=== PATIENT | female | born 1975 | race Caucasian/White ===

== ENCOUNTER → 2017-06-28 09:45 | Outpatient (CLI) | payer OTHER, SELFPAY ==
--- NOTE | 2017-06-28 09:46 | DI.RAD.S_ITS ---
PROCEDURE: XR KNEE RT 3V INDICATIONS: fell on right knee TECHNIQUE: 3 views of the knee were acquired. COMPARISON: None. FINDINGS: Bones: No fractures or dislocations. No suspicious bony lesions. Small marginal osteophytes are evident along the articular surface of the patella. There is also spurring of the tibial spines. Soft tissues: No joint effusion. No suspicious soft tissue calcifications. Prepatellar soft tissue edema is incidentally noted. IMPRESSION: Minimal degenerative changes of the right knee. No acute fractures. Dictated by: Martín Lopez M.D. on 06/28/2017 at 9:50 Approved by: Martín Lopez M.D. on 06/28/2017 at 9:52
== END ==
PROVIDERS: Family Provider Physician Assistant; PCP Physician Assistant
DX: M17.11 Unilateral primary osteoarthritis, right knee (principal)
CPT/HCPCS: 73562

== ENCOUNTER → 2017-11-08 15:59 | Outpatient (CLI) | payer OTHER, SELFPAY ==
[2017-11-16 10:24] LABS: Rapid Plasma Reagin NON-REACTIVE
== END ==
PROVIDERS: Visit Provider Specialist
DX: N90.89 Other specified noninflammatory disorders of vulva and perineum (principal)
CPT/HCPCS: 36415; 86592

== ENCOUNTER → 2017-12-04 14:57 | Outpatient (CLI) | payer OTHER, SELFPAY ==
--- NOTE | 2017-12-04 14:58 | DI.MG.S_ITS ---
BILATERAL DIGITAL SCREENING MAMMOGRAM 3D/2D WITH CAD: 12/04/2017 CLINICAL: Routine screening. Comparison is made to exam dated: 08/02/2016 [facility]. The tissue of both breasts is heterogeneously dense. This may lower the sensitivity of mammography. Current study was also evaluated with a Computer Aided Detection (CAD) system. No significant masses, calcifications, or other findings are seen in either breast. There has been no significant interval change. IMPRESSION: NEGATIVE There is no mammographic evidence of malignancy. A 1 year screening mammogram is recommended. This exam was interpreted at Station ID: [id number]. NOTE: For mammograms, a report in lay terms will be sent to the patient. Approximately 15% of breast malignancies will not be visualized mammographically. In the management of a palpable breast mass, a negative mammogram must not discourage biopsy of a clinically suspicious lesion. Electronically Signed By: Maye mar/lázaro:12/05/2017 08:55:49 letter sent: Normal Exam ACR BI-RADS Category 1: Negative 3341F
== END ==
PROVIDERS: PCP Physician Assistant; Visit Provider Specialist
DX: Z12.31 Encounter for screening mammogram for malignant neoplasm of breast (principal)
CPT/HCPCS: 77063; 77067

== ENCOUNTER 2018-05-21 23:56 | Emergency (ER) | payer OTHER, SELFPAY ==
[2018-05-22 00:05] VITALS: BP 129/99; PULSE 89; RESP 24; TEMP 36.4; O2SAT 100
--- NOTE | 2018-05-22 00:17 | DI.CT.S_ITS ---
PROCEDURE: CT KIDNEY URETER BLADDER (KUB) INDICATIONS: Sudden severe flank pain on the right, possible urinary tract stone. TECHNIQUE: Noncontrast 5 mm thick sections acquired from the diaphragms to the symphysis. 5 mm thick coronal and sagittal reformats were then performed. For radiation dose reduction, the following was used: automated exposure control, adjustment of mA and/or kV according to patient size. COMPARISON: None. FINDINGS: Image quality: Excellent. Lung bases: Lung bases are clear. Heart size is normal. Urinary system: Both kidneys are normal in size. No kidney stones. No left-sided hydronephrosis or perinephric fat stranding but there is slight prominence of the right renal collecting system and at the far distal margin of the right ureter there is a 1.5 mm calculus (seen centered on series 2 image 73) several centimeters above the ureteral insertion onto the posterior right bladder margin.. Both ureters appear non-dilated throughout their expected courses. Bladder wall thickness is normal; no calcified bladder stones. Other solid organs: Liver is normal in size. Gallbladder appears normal. Pancreas is normal in contours. Spleen is normal in size. No adrenal nodules. Peritoneum and bowel: Unenhanced bowel loops demonstrate normal wall thickness and caliber. No free fluid or air. Nodes and vessels: No retroperitoneal or mesenteric adenopathy by size criteria. Aorta and inferior vena cava are normal in caliber. Abdominal wall: No ventral hernias. Pelvis: No free pelvic fluid. No inguinal hernias or adenopathy. No sign of appendicitis the normal appendix could not be found. The uterus is anteverted and appears to have a fibroid that is slightly more dense than the uterine myometrium projecting inferiorly from the anteverted anterior uterine margin at the fundus. This structure measures only 2.4 cm in maximal dimension. Bones: No suspicious bony lesions. No vertebral body compression fractures. IMPRESSION: Slight hydronephrosis and hydroureter on the right leading to a 1.5 mm far distal right ureteral stone positioned within the ureter slightly above the bladder level. Incidental finding of a 2.4 cm mildly hyperdense uterine fibroid projecting from the anterior border of the fundal portion of the uterus which is strongly anteverted. Dictated by: Todd Trinidad M.D. on 05/22/2018 at 9:01 Approved by: Todd Trinidad M.D. on 05/22/2018 at 9:07
[2018-05-22] MEDS: ONDANSETRON 4 MG/2 ML INJ IV ×2 (00:20→00:28)
[2018-05-22 00:26] LABS: Add Manual Diff / Slide Review NO; Basophils Absolute Auto 100 /uL (0-100); Basophils Percent Auto 1.1 % (0-2); Eosinophils Absolute Auto 100 /uL (0-450); Eosinophils Percent Auto 1.2 % (2-4); Hematocrit 39.9 % (36-46); Hemoglobin 13.5 g/dL (12.0-16.0); Lymphocytes Absolute Auto 3300 /uL (1100-4500); Lymphocytes Percent Auto 27.8 % (25-40); Mean Corpuscular HGB Conc 33.7 % (30-36); Mean Corpuscular Hemoglobin 30.1 PG (26-34); Mean Corpuscular Volume 89.1 fL (80-100); Monocytes Absolute Auto 1200 /uL (0-900); Neutrophils Absolute Auto 7100 /uL (1500-7000); Neutrophils Percent Auto 59.9 % (50-75); Platelet Count 298 X10^3/uL (150-400); Red Blood Cell Count 4.48 X10^6/uL (4.0-5.2); Red Cell Distribution Width 13.4 % (11.6-14.8); White Blood Cell Count 11.9 X10^3/uL (4.5-11.0)
[2018-05-22] MEDS: KETOROLAC 30 MG/ML VIAL 15 MG IV (00:28)
[2018-05-22] MEDS: SODIUM CHLORIDE 0.9% 1,000 ML 1000 ML IV (00:28)
[2018-05-22 00:31] LABS: Alanine Aminotransferase 24 IU/L (9-52); Albumin 4.4 g/dL (3.5-5.0); Albumin Globulin Ratio 1.5 (1.0-2.8); Alkaline Phosphatase 55 U/L (38-126); Aspartate Aminotransferase 22 IU/L (14-36); Bilirubin Total 0.2 mg/dL (0.2-1.3); Blood Urea Nitrogen 21 mg/dL (7-17); Calcium 9.1 mg/dL (8.4-10.2); Carbon Dioxide 24 mmol/L (22-32); Chloride 101 mmol/L (98-107); Estimated Glomerular Filt Rate > 60.0 mL/min (>60); Globulin 2.9 g/dL (1.7-4.1); Glucose 114 mg/dL (70-100); HEMOLYSIS < 15 (0-50); Sodium 137 mmol/L (137-145); Total Protein 7.3 g/dL (6.3-8.2)
[2018-05-22 00:45] LABS: WBC Urine None Seen (0-5/HPF)
[2018-05-22 00:46] LABS: Appearance Urine UA CLEAR; Bilirubin Urine UA NEGATIVE (NEGATIVE); Color Urine UA YELLOW; Glucose Urine UA NEGATIVE (Negative); Ketones Urine UA 1+ (NEGATIVE); Leukocyte Esterase Urine UA NEGATIVE (NEGATIVE); Nitrite Urine UA NEGATIVE (Negative); Occult Blood Urine UA TRACE-INTACT (Negative); Protein Urine UA NEGATIVE (Negative); Urobilinogen Urine UA 0.2 E.U./dL (0.2)
[2018-05-22 00:56] LABS: Bacteria Urine Few (2-10); Culture Indicated Urine Cult Not Indicated; RBC Urine 0-1/HPF (0-5/HPF); Squamous Epithelial Cell Urine 5-10 /HPF (0-5/HPF)
[2018-05-22] MEDS: POTASSIUM CHLORIDE 20 MEQ/15 ML UDC 40 MEQ PO (01:37)
[2018-05-22] MEDS: ONDANSETRON 4 MG ODT PREPACK 1 BOTTLE MISC (02:04)
[2018-05-22] MEDS: HYDROCODONE/ACET 5/325 PREPACK 1 BOTTLE MISC (02:04)
[2018-05-22 02:10] VITALS: BP 122/65; PULSE 66; RESP 16; O2SAT 98
--- NOTE | 2018-05-22 06:47 | ED.ABDPAIN ---
HPI - Abdominal Pain General Chief Complaint: Abdominal Pain Stated Complaint: sudden terrible pain in right back area Time Seen by Provider: 05/21/18 23:57 Source: patient Mode of arrival: ambulatory Limitations: no limitations History of Present Illness HPI narrative: 42-year-old female nonsmoker with benign medical history presents with sudden onset right flank pain and radiation around her side. She denies provocation or palliation. She has nausea but denies any vomiting. She denies dysuria, frequency or urgency. She has had no fever or shaking chills MD complaint: flank pain Onset (ago): hour(s) Pain Consistency: intermittent Severity: severe Quality: stabbing Radiation: RLQ Relieving factors: nothing Exacerbating factors: nothing Associated symptoms: nausea Related Data Home Medications Medication Instructions Recorded Confirmed Multivitamin 1 tab PO .QDAY 09/19/17 10/30/17 Previous Rx's Medication Instructions Recorded hydrocodone-acetaminophen 1 tab PO Q4-6H PRN #10 tab 05/22/18 ketorolac 10 mg PO Q6H PRN #14 tab 05/22/18 ondansetron 4 mg PO TID-QID PRN #10 tab 05/22/18 tamsulosin [Flomax] 0.4 mg PO DAILY #10 cap 05/22/18 Allergies Allergy/AdvReac Type Severity Reaction Status Date / Time No Known Allergies Allergy Uncoded 10/30/17 15:35 Review of Systems Constitutional Denies chills, Denies fever(s), Denies lethargy and Denies weakness Eyes Denies change in vision, Denies eye discharge, Denies irritation and Denies loss of vision ENT Ears, Nose, Mouth, and Throat: Denies change in voice, Denies neck pain and Denies sore throat Cardiovascular Denies chest pain, Denies irregular heart rhythm, Denies lightheadedness, Denies palpitations, Denies dyspnea, Denies dyspnea on exertion and Denies orthopnea Respiratory Denies cough, Denies dyspnea, Denies dyspnea on exertion and Denies wheezing Gastrointestinal Gastrointestinal: Denies abdominal pain, Denies change in bowel habits, Denies diarrhea, Denies nausea and Denies vomiting Genitourinary Denies hematuria, Reports flank pain, Denies urinary incontinence and Denies urinary urgency Musculoskeletal Denies neck pain Integumentary/Breasts Denies pruritus, Denies erythema, Denies rash and Denies wounds Neurologic Denies confusion, Denies loss of vision and Denies weakness Psychiatric Denies anxiety, Denies confusion, Denies depression, Denies homicidal ideation and Denies suicidal ideation Endocrine Denies palpitations Hematologic/Lymphatic Denies easy bruising Allergic/Immunologic Denies wheezing [facility] Medical History Back pain (Resolved ~09/2016) Vitamin D deficiency (Resolved ~11/2016) Family History Mother Cancer Grandfather Cancer Social History Smoking Status: Former smoker Tobacco: How many years used: 1 second hand exposure: No alcohol intake: current (wine once a day.) substance use type: marijuana (I have an edible brownie once a week to help me sleep.) Family History Mother Cancer Grandfather Cancer Social History Smoking Status: Former smoker Tobacco: How many years used: 1 second hand exposure: No alcohol intake: current (wine once a day.) substance use type: marijuana (I have an edible brownie once a week to help me sleep.) Exam Narrative Exam Narrative: GENERAL: 42-year-old female, obviously uncomfortable and clutching her right flank HEAD: Atraumatic. Normocephalic. No temporal or scalp tenderness. EYES: Pupils equal round and reactive. Extraocular motions intact. No scleral icterus. No injection or drainage. ENT: Nose without bleeding, purulent drainage or septal hematoma. Throat without erythema, tonsillar hypertrophy or exudate. Uvula midline. Airway patent. NECK: Trachea midline. No JVD or lymphadenopathy. Supple, nontender, no meningeal signs. CARDIOVASCULAR: Regular rate and rhythm without murmurs, gallops, or rubs. RESPIRATORY: Clear to auscultation. Breath sounds equal bilaterally. No wheezes, rales, or rhonchi. GASTROINTESTINAL: Abdomen soft, non-tender, nondistended. No hepato-splenomegaly, or palpable masses. No guarding. EXTREMITIES: No clubbing, cyanosis, or edema. No joint tenderness, effusion, or edema noted. BACK: Nontender without deformity or crepitance. No flank tenderness. NEURO: AOx3. SKIN: No rash or erythema. Initial Vital Signs Initial Vital Signs: Vital Signs Temperature 97.5 F L 05/22/18 00:05 Pulse Rate 89 05/22/18 00:05 Respiratory Rate 24 05/22/18 00:05 Blood Pressure 129/99 H 05/22/18 00:05 Pulse Oximetry 100 05/22/18 00:05 Course Orders Ordered: ED Orders 05/22/18 00:08 Complete Blood Count AUTO DIFF Stat Comprehensive Metabolic Panel Stat 05/22/18 00:17 CT kidney ureter bladder (KUB) Stat 05/22/18 00:40 Urinalysis and Microscopic Stat Discontinued Medications Hydrocodone Bitart/Acetaminophen (Vicodin Prepack) 1 bottle MISC SEEINSTR ONE Stop: 05/22/18 01:39 Last Admin: 05/22/18 02:04 Dose: 1 bottle Hydromorphone HCl (Dilaudid) 0.5 mg IV NOW ONE Stop: 05/22/18 01:22 Last Admin: 05/22/18 01:35 Dose: Not Given Sodium Chloride (Normal Saline 0.9%) 1,000 mls @ 1,000 mls/hr IV BOLUS ONE Stop: 05/22/18 01:16 Last Infusion: 05/22/18 01:38 Dose: 0 mls/hr Admin: 05/22/18 00:28 Dose: 1,000 mls/hr Ketorolac Tromethamine (Toradol) 15 mg IV NOW ONE Stop: 05/22/18 00:18 Last Admin: 05/22/18 00:28 Dose: 15 mg Ondansetron HCl (Zofran) 4 mg IV NOW ONE Stop: 05/22/18 00:19 Last Admin: 05/22/18 00:20 Dose: 4 mg Ondansetron HCl (Zofran) 4 mg IV NOW ONE Stop: 05/22/18 00:18 Last Admin: 05/22/18 00:28 Dose: 4 mg Ondansetron HCl (Zofran Odt Prepack) 1 bottle MISC SEEINSTR ONE Stop: 05/22/18 01:39 Last Admin: 05/22/18 02:04 Dose: 1 bottle Potassium Chloride (Potassium Chloride) 40 meq PO NOW ONE Stop: 05/22/18 00:42 Last Admin: 05/22/18 01:37 Dose: 40 meq Reevaluation(s) Reevaluation #1: Near complete resolution of symptoms after above-stated therapies Vital Signs - 8 hr 05/22/18 00:05 05/22/18 02:10 Temperature 97.5 F L Pulse Rate 89 66 Respiratory Rate 24 16 Blood Pressure 129/99 H 122/65 Pulse Oximetry 100 98 MDM - Abdominal Pain Medical Records Attestation: I reviewed the patient's medical records. Lab Data Attestation: I reviewed the patient's lab results. Result diagrams: 05/22/18 00:08 05/22/18 00:08 Lab Results 05/22/18 05/22/18 05/22/18 Range/Units 00:08 00:08 00:40 WBC 11.9 H (4.5-11.0) X10^3/uL RBC 4.48 (4.0-5.2) X10^6/uL Hgb 13.5 (12.0-16.0) g/dL Hct 39.9 (36-46) % MCV 89.1 (80-100) fL MCH 30.1 (26-34) PG MCHC 33.7 (30-36) % RDW 13.4 (11.6-14.8) % Plt Count 298 (150-400) X10^3/uL Neut % (Auto) 59.9 (50-75) % Lymph % (Auto) 27.8 (25-40) % [place] % (Auto) 10.0 (3-14) % Eos % (Auto) 1.2 L (2-4) % Baso % (Auto) 1.1 (0-2) % Neut # (Auto) 7100 H (4557-3703) /uL Lymph # (Auto) 3300 (7915-1215) /uL [place] # (Auto) 1200 H (0-900) /uL Eos # (Auto) 100 (0-450) /uL Baso # (Auto) 100 (0-100) /uL Sodium 137 (137-145) mmol/L Potassium 3.0 L (3.4-5.1) mmol/L Chloride 101 (98-107) mmol/L Carbon Dioxide 24 (22-32) mmol/L BUN 21 H (7-17) mg/dL Creatinine 0.70 (0.52-1.04) mg/dL Estimated GFR > 60.0 (>60) mL/min BUN/Creatinine Ratio 30.0 H (6-22) Glucose 114 H (70-100) mg/dL Calcium 9.1 (8.4-10.2) mg/dL Total Bilirubin 0.2 (0.2-1.3) mg/dL AST 22 (14-36) IU/L ALT 24 (9-52) IU/L Alkaline Phosphatase 55 (38-126) U/L Total Protein 7.3 (6.3-8.2) g/dL Albumin 4.4 (3.5-5.0) g/dL Globulin 2.9 (1.7-4.1) g/dL Albumin/Globulin Ratio 1.5 (1.0-2.8) Urine Color Yellow Urine Appearance Clear Urine pH 6.0 (4.5-8.0) Ur Specific Cotton 1.020 (1.000-1.035) Urine Protein Negative (Negative) Urine Glucose (UA) Negative (Negative) g/dL Urine Ketones 1+ H (NEGATIVE) Urine Occult Blood Trace-intact (Negative) Urine Nitrate Negative (Negative) Urine Bilirubin Negative (NEGATIVE) Urine Urobilinogen 0.2 (0.2) E.U./dL Ur Leukocyte Esterase Negative (NEGATIVE) Urine RBC 0-1/hpf (0-5/HPF) Urine WBC None seen (0-5/HPF) Ur Squamous Epith Cells 5-10 /hpf H (0-5/HPF) Urine Bacteria Few (2-10) H (None) Ur Culture Indicated? Cult not indicated Point of care testing: Point of Care Testing Test Results Negative Imaging Data CT KUB: Attestation: I personally reviewed and interpreted this imaging study as follows: Radiologist's impression: Small nonobstructing stone at the right UVJ without evidence of hydro Discharge Plan Departure Patient Disposition: Home Clinical Impression: Calculus of kidney Discharge Date/Time: 05/22/18 02:10 Interventions: ED Discharge Assessment Last Done: 05/22/18 02:10 Instructions: DI for Kidney Stones Activity Restrictions/Additional Instructions: *You have been diagnosed with [ kidney stone ] *What to do: *Take medications as directed *Follow up with your primary care provider in 2-3 days, call for an appointment. Let them know you were seen in the Emergency Department and that we ask that you be seen in follow up *Return to ER if you should have any new, worsening or concerning symptoms Prescriptions: New tamsulosin [Flomax] 0.4 mg capsule 0.4 mg PO DAILY Qty: 10 RF: 0 hydrocodone-acetaminophen 5-325 mg tablet 1 tab PO Q4-6H PRN (Reason: pain) Qty: 10 RF: 0 ketorolac 10 mg tablet 10 mg PO Q6H PRN (Reason: pain) Qty: 14 RF: 0 ondansetron 4 mg tablet,disintegrating 4 mg PO TID-QID PRN (Reason: nausea and vomiting) Qty: 10 RF: 0 No Action Multivitamin 1 tab PO .QDAY RF: 0 Referrals: María Reicnos PA-C [Primary Care Provider] -
== END 2018-05-22 02:10 | disposition home or self-care (01) ==
PROVIDERS: Emergency Provider Emergency Medicine; PCP Physician Assistant
DX: N20.0 Calculus of kidney (principal)
CPT/HCPCS: 36591; 74176; 80053; 81001; 81025; 85025; 96361; 96374; 96375; 99283; 99284; J1885; J2405

== ENCOUNTER → 2018-05-25 16:34 | Outpatient (CLI) | payer OTHER, SELFPAY | PROVIDERS: PCP Nurse Practitioner Family; Visit Provider Nurse Practitioner Family | DX: N20.0 Calculus of kidney (principal) | CPT/HCPCS: 82370 ==

== ENCOUNTER → 2019-02-15 14:18 | Outpatient (CLI) | payer OTHER, SELFPAY ==
--- NOTE | 2019-02-15 | DI.MG.S_ITS ---
BILATERAL DIGITAL SCREENING MAMMOGRAM 3D/2D WITH CAD: 02/15/2019 CLINICAL: Routine screening. Comparison is made to exams dated: 12/04/2017 mammogram and 08/02/2016 mammogram - [facility]. The tissue of both breasts is heterogeneously dense. This may lower the sensitivity of mammography. Current study was also evaluated with a Computer Aided Detection (CAD) system. No significant masses, calcifications, or other findings are seen in either breast. There has been no significant interval change. IMPRESSION: NEGATIVE There is no mammographic evidence of malignancy. A 1 year screening mammogram is recommended. This exam was interpreted at Station ID: [id number]. NOTE: For mammograms, a report in lay terms will be sent to the patient. Approximately 15% of breast malignancies will not be visualized mammographically. In the management of a palpable breast mass, a negative mammogram must not discourage biopsy of a clinically suspicious lesion. Electronically Signed By: Maye mar/lázaro:02/15/2019 17:25:47 letter sent: Normal Exam ACR BI-RADS Category 1: Negative 3341F
== END ==
PROVIDERS: PCP Nurse Practitioner Family; Visit Provider Nurse Practitioner Family
DX: Z12.31 Encounter for screening mammogram for malignant neoplasm of breast (principal)
CPT/HCPCS: 77063; 77067

== ENCOUNTER → 2020-01-08 13:13 | Outpatient (CLI) | payer OTHER, SELFPAY ==
--- NOTE | 2020-01-08 13:14 | DI.US.S_ITS ---
PROCEDURE: US PELVIC COMPLETE INDICATIONS: HEAVY MENSES. MENORRHAGIA TECHNIQUE: Real-time scanning was performed of the pelvic organs, with image documentation. Additional endovaginal scanning was necessary due to incomplete visualization of the adnexal and endometrial structures by transabdominal scanning. COMPARISON: [facility], CT, CT KIDNEY URETER BLADDER (KUB), 05/22/2018, 1:08. FINDINGS: Transabdominal scanning: Limited scanning through the kidneys shows no hydronephrosis. No pathologic free abdominal or pelvic fluid. Endovaginal scanning: Uterus: Uterus is normal in size at 9.2 x 4.7 x 5.4 cm. The endometrium measures 6 mm in combined thickness. At the uterine fundus on the right, there is a fibroid seen that measures 3.1 x 2.5 x 2.3 cm. Ovaries: The right ovary measures 2.8 x 1.3 x 1.4 cm. The left ovary measures 2.3 x 1.6 x 1.6 cm. The ovaries have a normal sonographic appearance. No adnexal masses are seen. IMPRESSION: There is a 3.1 cm fundal fibroid seen. Dictated by: Martin Ferrer M.D. on 01/08/2020 at 14:54 Approved by: Martin Ferrer M.D. on 01/08/2020 at 14:56
== END ==
PROVIDERS: PCP Family Medicine; Referring Provider Registered Nurse Diabetes Educator; Visit Provider Registered Nurse Diabetes Educator
DX: N92.0 Excessive and frequent menstruation with regular cycle (principal); D25.9 Leiomyoma of uterus, unspecified
CPT/HCPCS: 76856

== ENCOUNTER → 2021-03-15 08:32 | Outpatient (CLI) | payer OTHER, SELFPAY ==
--- NOTE | 2021-03-15 | DI.MG.S_ITS ---
BILATERAL DIGITAL SCREENING MAMMOGRAM 3D/2D WITH CAD: 03/15/2021 CLINICAL: Routine screening. Comparison is made to exam dated: 02/15/2019 [facility]. The tissue of both breasts is heterogeneously dense. This may lower the sensitivity of mammography. Current study was also evaluated with a Computer Aided Detection (CAD) system. No significant masses, calcifications, or other findings are seen in either breast. There has been no significant interval change. IMPRESSION: NEGATIVE There is no mammographic evidence of malignancy. A 1 year screening mammogram is recommended. This exam was interpreted at Station ID: [id number]. NOTE: For mammograms, a report in lay terms will be sent to the patient. Approximately 15% of breast malignancies will not be visualized mammographically. In the management of a palpable breast mass, a negative mammogram must not discourage biopsy of a clinically suspicious lesion. Electronically Signed By: Barry kramer/lázaro:03/15/2021 09:42:57 letter sent: Normal Exam ACR BI-RADS Category 1: Negative 3341F
== END ==
PROVIDERS: PCP Family Medicine; Referring Provider Family Medicine; Visit Provider Family Medicine
DX: Z12.31 Encounter for screening mammogram for malignant neoplasm of breast (principal)
CPT/HCPCS: 77063; 77067

== ENCOUNTER 2021-10-16 07:32 | Emergency (ER) | payer OTHER, SELFPAY ==
[2021-10-16 07:42] VITALS: BP 132/89; PULSE 91; RESP 18; TEMP 36.7; O2SAT 100; BMI 25.0
--- NOTE | 2021-10-16 07:46 | DI.US.S_ITS ---
PROCEDURE: US OB <= 14 WEEKS FETUS INDICATIONS: + preg 1 week ago. negative, vaginal bleeding 9 wk by dates OUTSIDE/PRIOR DATING DATA: Last menstrual period (LMP): 08/08/2021. LMP-based estimated date of delivery (TUNDE): 9 weeks 6 days First dating scan (date and location): None available Estimated date of delivery (TUNDE) from first dating scan: None TECHNIQUE: Real-time scanning was performed of the fetus and maternal pelvic organs, with image documentation. Endovaginal scanning was also performed to better visualize the fetus and maternal ovaries. COMPARISON: None. FINDINGS: No gestational sac or embryo is identified. Maternal organs: Uterus measures 12.5 x 6.8 x 9 cm. Fundal anterior subserosal fibroid measuring 3.9 x 3.2 x 3.9 cm. The endometrium has heterogeneous debris between combined wall measurement of 12 mm. Heterogeneous debris extends into the cervical region. The right ovary is not seen. Left ovary measures 4.2 x 2.5 x 2.6 cm with a 2.3 cm simple appearing cyst. IMPRESSION: 1. No intrauterine identified. 2. Heterogeneous material within the endocervical canal are likely retained products of conception. 3. Fundal uterine fibroid. We strive to produce accurate, complete, and clear reports of imaging services. To assist us in improving patient care, this report was composed using standard report templates and voice recognition software. Therefore, it may contain abnormal punctuation, insertions and/or omissions. Occasional wrong-word or sound-alike substitutions may occur. Though we review the report and make efforts to correct it, we do recommend that the report be read carefully in proper context to recognize any text inaccuracies. Dictated by: Jose E Field M.D. on 10/16/2021 at 8:12 Approved by: Jose E Field M.D. on 10/16/2021 at 8:21
--- NOTE | 2021-10-16 07:48 | ED.PREGNANCY ---
HPI - General Chief complaint: Vaginal Bleeding Stated complaint: sent by [facility] miscarriage Time Seen by Provider: 10/16/21 07:38 Source: patient Mode of arrival: Ambulatory Limitations: no limitations History of Present Illness HPI Narrative: This is a 46-year-old at approximately 9-10 weeks based on last menstrual. The end of July of 2021. Patient states she thought she was perimenopausal so she was not expecting to have a positive test she did not check 1 until the last month. She states it was positive approximately a week to 2 weeks ago. Patient states she started having some vaginal bleeding and overnight had increasing bleeding she is had some clots and quite a bit of cramping in her lower pelvic and back region which he states is more intense than typical. . Patient states she is had prior kidney stones and that this feels similar intensity although different pattern. She denies any fevers or chills. No chest pain COVID although testing positive now is still recovering. Denies any cough, cold or congestion. Denies nausea or vomiting. Denies diarrhea constipation. No dysuria, urgency or frequency. Denies vaginal discharge. She has been having bleeding. Patient states she normally has regular menses. Denies any daily medications or medical issues. States she is had a prior laparoscopic surgery for ovarian cyst remotely. No tobacco, occasional alcohol, no illicit. Patient had not established with a provider. Her primary care is Dr. Mejia. Related Data Home Medications Medication Instructions Recorded Confirmed ibuprofen 200 mg tablet 400 mg PO BID PRN 07/25/18 08/03/21 Previous Rx's Medication Instructions Recorded fluconazole 150 mg tablet See Rx Instructions PO .COMPLEX #2 05/03/21 (Diflucan) tabs meloxicam 7.5 mg tablet 7.5 mg PO BID PRN pain #14 tabs 10/16/21 Allergies Allergy/AdvReac Type Severity Reaction Status Date / Time No Known Allergies Allergy Uncoded 10/16/21 07:18 Review of Systems Review of Systems ROS Unobtainable: All systems reviewed & are unremarkable except as noted in HPI and below Exam Narrative Exam Narrative: GENERAL: Alert and oriented x three, mild. Patient is tearful. HEENT: Head normocephalic, atraumatic, EOMI, pupils reactive, face symmetric, moist mucous membranes NECK: Supple, full range of motion CARDIOVASCULAR: Regular rate and rhythm without murmurs, rubs or gallops. RESPIRATORY: Breath sounds equal bilaterally, no wheezes rales or rhonchi. ABDOMEN: Soft, nontender. Normoactive bowel sounds all 4 quadrants. No guarding or rebound, rigidity, no mass : No CVA tenderness BACK: No cervical, thoracic or lumbar vertebral point tenderness. Patient has normal range of motion. Patient's gait is normal. Muscle strength is 5/5 in lower extremities EXTREMITIES: Normal range of motion, no clubbing or edema. Neurovascularly intact NEUROLOGICAL: Cranial nerves II through XII grossly intact. Moving all extremities SKIN: Warm, dry, no petechiae, no rashes or lesions. Initial Vital Signs Initial Vital Signs: Vital Signs Temperature 98.1 F 10/16/21 07:42 Pulse Rate 91 H 10/16/21 07:42 Respiratory Rate 18 10/16/21 07:42 Blood Pressure 132/89 10/16/21 07:42 Pulse Oximetry 100 10/16/21 07:42 Oxygen Delivery Method 10/16/21 07:42 Course Orders Ordered: ED Orders 10/16/21 07:46 US OB <= 14 weeks fetus Stat 10/16/21 08:00 CBC Auto Diff [Complete Blood Count AUTO DIFF] Stat CMP [Comprehensive Metabolic Panel] Stat HCG Quantitative /Beta subunit Stat 10/16/21 09:20 ABO RH Type Stat Discontinued Medications Ketorolac Tromethamine (Ketorolac 30 Mg/Ml Vial) 30 mg IM NOW ONE Stop: 10/16/21 07:58 Last Admin: 10/16/21 08:07 Dose: 30 mg Documented By: SASCHA Vital Signs Vital signs: Vital Signs - 8 hr 10/16/21 07:42 10/16/21 10:27 Temperature 98.1 F 98.4 F Pulse Rate 91 H 75 Respiratory Rate 18 16 Blood Pressure 132/89 108/66 Pulse Oximetry 100 99 Oxygen Delivery Method Room Air Room Air MDM - OB/Uterine Contractions Lab Data Result diagrams: 10/16/21 08:00 10/16/21 08:00 Labs: Lab Results 10/16/21 10/16/21 10/16/21 Range/Units 08:00 08:00 09:20 WBC 10.2 (4.5-11.0) X10^3/uL RBC 4.36 (4.0-5.2) X10^6/uL Hgb 12.8 (12.0-16.0) g/dL Hct 37.3 (36-46) % MCV 85.5 (80-100) fL MCH 29.3 (26-34) PG MCHC 34.3 (30-36) % RDW 13.5 (11.6-14.8) % Plt Count 242 (150-400) X10^3/uL Neut % (Auto) 84.7 H (50-75) % Lymph % (Auto) 7.4 L (25-40) % Owsley % (Auto) 6.5 (3-14) % Eos % (Auto) 0.9 L (2-4) % Baso % (Auto) 0.5 (0-2) % Neut # (Auto) 8600 H (8769-6464) /uL Lymph # (Auto) 800 L (3218-1448) /uL Owsley # (Auto) 700 (0-900) /uL Eos # (Auto) 100 (0-450) /uL Baso # (Auto) 100 (0-100) /uL Sodium 137 (137-145) mmol/L Potassium 4.0 (3.4-5.1) mmol/L Chloride 108 H (98-107) mmol/L Carbon Dioxide 22 (22-32) mmol/L BUN 12 (7-17) mg/dL Creatinine 0.58 (0.52-1.04) mg/dL Estimated GFR > 60 (>60) mL/min BUN/Creatinine Ratio 20.7 (6-22) Glucose 100 (70-100) mg/dL Calcium 9.0 (8.4-10.2) mg/dL Total Bilirubin 0.3 (0.2-1.3) mg/dL AST 21 (14-36) IU/L ALT 24 (<35) IU/L Alkaline Phosphatase 54 (38-126) U/L Total Protein 7.1 (6.3-8.2) g/dL Albumin 4.1 (3.5-5.0) g/dL Globulin 3.0 (1.7-4.1) g/dL Albumin/Globulin Ratio 1.4 (1.0-2.8) HCG, Quant 87403 mIU/mL Blood Type O Negative Point of Care Testing Test Results Positive Imaging Data US - OB: Radiologist's Impression: Close Ultrasound (Signed) Jose E Field - 10/16/21 Launch?[address] [address] Ultrasound Report Signed Patient: Jayde Espinoza MR#: [id number] : 1975 Acct:[id number] Age/Sex: 46 / F Date of Service: 10/16/21 Loc: ED Accession Number: [id number] ?? Procedure: US OB <= 14 weeks fetus Ordering Provider: Shilpa Miles D.O. PROCEDURE:? US OB <= 14 WEEKS FETUS ? INDICATIONS:? + preg 1 week ago. negative, vaginal bleeding 9 wk by dates ? OUTSIDE/PRIOR DATING DATA:? Last menstrual period (LMP):? 08/08/2021.? LMP-based estimated date of delivery (TUNDE):? 9 weeks 6 days First dating scan (date and location):? None available Estimated date of delivery (TUNDE) from first dating scan:? None ? TECHNIQUE:? Real-time scanning was performed of the fetus and maternal pelvic organs, with image documentation.? Endovaginal scanning was also performed to better visualize the fetus and maternal ovaries.? ? COMPARISON:? None. ? FINDINGS:? ? No gestational sac or embryo is identified. ? Maternal organs:? Uterus measures 12.5 x 6.8 x 9 cm.? Fundal anterior subserosal fibroid measuring 3.9 x 3.2 x 3.9 cm. The endometrium has heterogeneous debris between combined wall measurement of 12 mm.? Heterogeneous debris extends into the cervical region. ? The right ovary is not seen. ? Left ovary measures 4.2 x 2.5 x 2.6 cm with a 2.3 cm simple appearing cyst. ? IMPRESSION:? 1. No intrauterine identified.? 2. Heterogeneous material within the endocervical canal are likely retained products of conception. 3. Fundal uterine fibroid. ? We strive to produce accurate, complete, and clear reports of imaging services. To assist us in improving patient care, this report was composed using standard report templates and voice recognition software. Therefore, it may contain abnormal punctuation, insertions and/or omissions. Occasional wrong-word or sound-alike substitutions may occur. Though we review the report and make efforts to correct it, we do recommend that the report be read carefully in proper context to recognize any text inaccuracies. ? ? ? Dictated by: Jose E Field M.D. on 10/16/2021 at 8:12 ? ? Approved by: Jose E Field M.D. on 10/16/2021 at 8:21?? [facility] Narrative Medical decision making narrative: This is a 46-year-old female 9-10 weeks by dates with no intrauterine , left ovary has a simple appearing cyst with heterogeneous material in the endocervical canal, fundal uterine fibroid with no obvious ectopic or noted. Patient is O negative. Discussed with patient suspect miscarriage her hCG is elevated, appropriate for dates. Would like to give RhoGAM patient politely refuses. She understands that this could affect and prevent future pregnancies. Patient notes this was an unexpected and that she does not wish for future fertility and is aware that she should receive RhoGAM in the next 48-72 hours if she changes her mind. Discussed at length patient's concerns and reasoning why not to get RhoGAM. We discussed she does not have to have multiple doses and is not a vaccination. All questions answered. Patient has been wishing to follow-up with Dr. Rodriguez in the OBGYN clinic so plan for follow up with director traffic and planning for serial HCG until resolution to normal. Patient prefers narcotics for pain management so will give a prescription for meloxicam that she can also take Tylenol. We also discussed return precautions signs and symptoms to watch for. Discharge Plan Departure Patient Disposition: Home Clinical Impression: Miscarriage Instructions: DI for Miscarriage Activity Restrictions/Additional Instructions: Follow-up with director traffic and planning for recheck and serial HCG levels until normalized. Please call to set up an appointment. It is recommended that you received RhoGAM to prevent antibodies that may affect any future pregnancies. If you change your mind you can receive this within 72 hours. You may take meloxicam 1 tablet every 12 hours as needed, do not take this medication with NSAIDs such as Aleve, ibuprofen or naproxen. You can take Tylenol up to a 1000 mg every 6 hours with this medication. [facility] [place] Please return for fevers, rapidly worsening pain, passing out, persistent vomiting, new chest pain or shortness of breath, going through more than a pad an hour or other new or concerning symptoms. Prescriptions: New meloxicam 7.5 mg tablet 7.5 mg PO BID PRN (Reason: pain) Qty: 14 0RF No Action fluconazole [Diflucan] 150 mg tablet See Rx Instructions PO .COMPLEX Qty: 2 0RF Rx Instructions: Take 1 pill day 1 and 1 pill day 3 for yeast infection PO; ibuprofen 200 mg tablet 400 mg PO BID PRN Referrals: Prashanth Mejia DO [Primary Care Provider] - Luis Alberto Rodriguez MD [Physician] - Visit Report Forms: Patient Portal/API
[2021-10-16] MEDS: KETOROLAC 30 MG/ML VIAL IM (08:07)
[2021-10-16 08:21] LABS: Add Manual Diff / Slide Review NO; Basophils Absolute Auto 100 /uL (0-100); Basophils Percent Auto 0.5 % (0-2); Eosinophils Absolute Auto 100 /uL (0-450); Eosinophils Percent Auto 0.9 % (2-4); Hematocrit 37.3 % (36-46); Hemoglobin 12.8 g/dL (12.0-16.0); Lymphocytes Absolute Auto 800 /uL (1100-4500); Lymphocytes Percent Auto 7.4 % (25-40); Mean Corpuscular HGB Conc 34.3 % (30-36); Mean Corpuscular Hemoglobin 29.3 PG (26-34); Mean Corpuscular Volume 85.5 fL (80-100); Monocytes Absolute Auto 700 /uL (0-900); Monocytes Percent Auto 6.5 % (3-14); Neutrophils Absolute Auto 8600 /uL (1500-7000); Neutrophils Percent Auto 84.7 % (50-75); Platelet Count 242 X10^3/uL (150-400); Red Blood Cell Count 4.36 X10^6/uL (4.0-5.2); Red Cell Distribution Width 13.5 % (11.6-14.8); White Blood Cell Count 10.2 X10^3/uL (4.5-11.0)
[2021-10-16 08:29] LABS: Alanine Aminotransferase 24 IU/L (<35); Albumin 4.1 g/dL (3.5-5.0); Albumin Globulin Ratio 1.4 (1.0-2.8); Alkaline Phosphatase 54 U/L (38-126); Aspartate Aminotransferase 21 IU/L (14-36); BUN Creatinine Ratio 20.7 (6-22); Bilirubin Total 0.3 mg/dL (0.2-1.3); Blood Urea Nitrogen 12 mg/dL (7-17); Carbon Dioxide 22 mmol/L (22-32); Chloride 108 mmol/L (98-107); Estimated Glomerular Filt Rate > 60 mL/min (>60); Glucose 100 mg/dL (70-100); HEMOLYSIS < 15 (0-50); Sodium 137 mmol/L (137-145); Total Protein 7.1 g/dL (6.3-8.2)
[2021-10-16 09:10] LABS: HCG Quantitative /Beta subunit 23098 mIU/mL
[2021-10-16 10:27] VITALS: BP 108/66; PULSE 75; RESP 16; TEMP 36.9; O2SAT 99
== END 2021-10-16 10:29 | disposition home or self-care (01) ==
PROVIDERS: Emergency Provider Emergency Medicine; PCP Family Medicine
DX: O03.9 Complete or unspecified spontaneous abortion without complication (principal)
CPT/HCPCS: 36415; 76801; 76830; 80053; 81025; 84702; 85025; 86900; 86901; 96372; 99283; 99284; J1885

== ENCOUNTER → 2021-10-25 07:41 | Outpatient (CLI) | payer OTHER, SELFPAY ==
[2021-10-25 12:06] LABS: HCG Quantitative /Beta subunit 807.8 mIU/mL
== END ==
PROVIDERS: PCP Family Medicine; Referring Provider Obstetrics & Gynecology; Visit Provider Obstetrics & Gynecology
DX: N91.2 Amenorrhea, unspecified (principal)
CPT/HCPCS: 36415; 84702

== ENCOUNTER → 2021-11-02 15:51 | Outpatient (CLI) | payer OTHER, SELFPAY ==
[2021-11-02 17:58] LABS: HCG Quantitative /Beta subunit 113 mIU/mL
== END ==
PROVIDERS: PCP Family Medicine; Referring Provider Obstetrics & Gynecology; Visit Provider Obstetrics & Gynecology
DX: O20.0 Threatened abortion (principal); Z3A.00 Weeks of gestation of pregnancy not specified
CPT/HCPCS: 36415; 84702

== ENCOUNTER 2022-06-06 11:27 | Day surgery (SDC) | payer OTHER, SELFPAY ==
[2022-06-03 07:44] VITALS: BMI 27.4
--- NOTE | 2022-06-06 | PATH_ITS ---
[facility] Accession Number: [id number] No. of containers..01 Tissue . 01 Material submitted: . toe - LEFT THIRD TOE MUCOID CYST . 01 Diagnosis: Left Third Toe, Biopsy: Dermal fibrosis with mixed inflammation and focal osteocartilaginous tissue; see comment. MRV 06/09/20221913 Local . 01 Comment: Section demonstrates the surface of dermal fibrosis with mixed inflammation and focal osteocartilaginous tissue in the superficial dermis. A colloidal iron stain does not highlight significantly increased dermal mucin. The findings are not entirely specific; however, they could represent the surface of a traumatized exocytosis. The examined section is negative for malignancy. If this is a partial sampling of a larger lesion, however, the findings may not be entirely appeals representative of the lesion as a whole. Clinical and radiographic correlation is suggested. . This case has been reviewed by Dr. Clarissa Sherman, who agrees with the above diagnosis. . 01 Electronically signed: . Manfred Doyle MD, Dermatopathologist NPI- [id number] . 01 Gross description: . LEFT THIRD TOE MUCOID CYST: Received in formalin is 1 piece of tissue measuring 0.6 x 0.3 x 0.2 cm which is inked, bisected and submitted in toto in 1 cassette. /CPE /CPE 06/10/2022 0946 Local . 01 Pathologist provided ICD-10: R23.9 . 01 CPT . 724421, [id number] Specimen Comment: A courtesy copy of this report has been sent to [phone] Performed at: 01 [facility] [address] [place] [address] [address] [facility], [place], [place] [id number] MD Yuriy Del Cid MD Phone: [phone]
[2022-06-06 11:49] VITALS: BMI 27.4
[2022-06-06 12:08] VITALS: BP 122/80; PULSE 68; RESP 16; TEMP 36.2; O2SAT 97
[2022-06-06] MEDS: LACTATED RINGERS 1,000 ML 42 ML IV (12:14)
--- NOTE | 2022-06-06 12:28 | P.OP_ITS ---
Operative Date/Time/Diagnoses Date of procedure: 06/06/22 Time of procedure: 12:29 Pre-op diagnosis: Left third toe soft tissue cyst, suspected toe joint spurring Post-op diagnosis: same Procedure & Clinicians Procedure: Left third toe distal interphalangeal joint arthroplasty with excision of soft tissue cyst Same procedure as scheduled: Yes Indications: 46 yo female with painful recurring cyst prominently on the distal joint of the left third toe. This has caused pain, swelling, and there was a question of local cellulitis at one point. The redness and acute edema has since discontinued but the lower grade local swelling and cyst along with pain in the area persist. Conservative measures failed to alleviate her pain and she wished to have surgical intervention at this time. We spoke of the risks, potential complications, alternatives, and expected outcomes. Consent was reviewed and signed, no contraindication to the procedure at this time. Surgeon: Mckenna Thompson Click Yes if Unassisted: Yes Anesthesia Type: General Operative Notes Closure Type: primary Specimen(s): other (Left third toe mucoid-type cyst from skin sent to pathology for evaluation) Estimated Blood Loss (mL): 5 Blood products transfused: none Tourniquet time (min): 15 Procedure in detail: The patient was brought to the operating room and placed on the operating table in the supine position. The tourniquet was placed about the left ankle, well padded, appropriately aligned. After induction of general anesthesia the left foot and ankle were prepped and draped in the usual aseptic manner. Injection of anesthesia to the area around the left second toe. The tourniquet was inflated. Incision was made over the third distal interphalangeal joint extending toward proximal interphalangeal joint dorsally. The incision was deepened through subcutaneous tissues being careful to identify and retract all vital neural and vascular structures. All bleeders were cauterized and ligated as necessary. The incision included the ellipse of the lateral distal interphalangeal joint skin and subcutaneous cyst. This cyst was showing thickening of the subcutaneous tissues underneath, but no stalk noted. It did not decompress or burst on excision but was more distal to the joint. A transection of the extensor tendon at the distal interphalangeal joint was performed. The joint showed a firm thin shelf of bone extending proximal from the dorsal distal phalanx into the area over the joint. Either side of the joint surfaces were partially worn of their cartilage with reduced smoothness. No fracture was noted. A saw was used to resect the base of the distal phalanx and minimally the head of the intermediate phalanx to reduce the edges of the arthritic changes to the joints. A rongeur was used to smooth the areas dorsally, the distal phalanx being a little more brittle/fragile dorsally. The area was irrigated with copious amounts normal sterile saline. Cautery was used to the lateral joint space tissues on proximal edge in the case the base was part of etiolgy of cyst. The distal inter phalangeal joint had good apposition. Tourniquet was deflated, a prompt hyperemic response was seen to the toes. The extensor tendon was repaired using 4-0 Vicryl and subcutaneous closure using Vicryl as well. Nylon was used to close the skin. A lightly compressive dressing was placed on the foot and she was placed in stockinette and postsurgical boot and transferred to the PACU with vital signs stable. Complications: none Post-operative Condition: stable Plan for aftercare: Following a period of postoperative monitoring, the patient will be discharged to home on written and oral postoperative instructions including keeping the dressing dry and intact, no greater than 50% weight to the surgical foot in this initial 1st few days, icing behind the knee and elevating the foot when seated home. DVT prevention techniques have been reviewed. She already has her pr escription picked up for tramadol.
--- NOTE | 2022-06-06 12:28 | PM.PREOP ---
Pre-operative Note Interval Note History & Physical reviewed/Exam performed by Physician: Yes Changes to H&P: No
[2022-06-06] MEDS: CEFAZOLIN 2 GM/100 ML PREMIX 100 ML IV (12:51)
--- NOTE | 2022-06-06 13:09 | SUR.OPER ---
Supine on padded OR bed, head on pillow, arms secured on padded arm boards at <90 degrees abduction, legs uncrossed, safety belt at waist, tape over blanket over lower right leg, left leg drapped free.
[2022-06-06] MEDS: BUPIVACAINE 0.5% (PF) 30 ML VIAL INJ (13:18)
[2022-06-06 13:48] VITALS: BP 84/47; PULSE 60; RESP 12; TEMP 37.1; O2SAT 98
[2022-06-06 13:52] VITALS: BP 92/43; PULSE 60; RESP 16; O2SAT 97
[2022-06-06 13:58] VITALS: BP 98/60; PULSE 56; RESP 14; O2SAT 98
[2022-06-06 14:02] VITALS: BP 110/65; PULSE 58; RESP 20; TEMP 36.3; O2SAT 99
--- NOTE | 2022-06-06 14:05 | SUR.PHASEI ---
received to PACU after general anesthesia. Airway patent, self maintained. Report from Dr Smith and Neeru Masterson RN.
[2022-06-06 14:06] VITALS: BP 101/63; PULSE 61; RESP 14; TEMP 36.2; O2SAT 98
== END 2022-06-06 14:30 | disposition home or self-care (01) ==
PROVIDERS: PCP Family Medicine; Referring Provider Podiatrist; Visit Provider Podiatrist
PROC: (CPT 26535; principal; 2022-06-06 12:45)
DX: M79.662 Pain in left lower leg (principal); M77.52 Other enthesopathy of left foot and ankle; L90.5 Scar conditions and fibrosis of skin; R23.9 Unspecified skin changes
CPT/HCPCS: 28160; 28092; J0690; J1100; J1885; J2250; J2405; J2704; J3010